=== PATIENT | male | born 1955 | race Two or more races ===

== ENCOUNTER → 2019-07-17 | Outpatient (CLI) | payer MEDICARE, MEDICAID ==
[~2019-07-17] MED LIST: ASPI-404 PO; ATOR10TA52 PO; HYDR25TA4 PO; OMEP20TA PO
[2019-07-17 07:48] LABS: Urine Bacteria FEW /hpf (None Seen); Urine Blood Negative /uL (Negative); Urine Mucus FEW (None Seen); Urine Specific Gravity 1.017 (1.001-1.035); Urine WBC 4 /hpf (0 - 3)
[2019-07-17 08:02] LABS: INR 1.03 (0.9-1.15); Partial Thromboplastin Time 29.1 sec (23.64-32.05)
[2019-07-17 08:10] LABS: Albumin 3.6 g/dL (3.4-5.0); Calcium 8.8 mg/dL (8.5-10.1); Potassium 3.4 mmol/L (3.5-5.1)
[2019-07-17 08:14] LABS: BUN/Creatinine Ratio 16.7; Bilirubin, Total 0.4 mg/dL (0.2-1.0); Total Protein 7.5 g/dL (6.4-8.2)
[2019-07-17 09:01] LABS: Free T4 (Free Thyroxine) 1.26 ng/dL (0.89-1.76)
[2019-07-18 04:06] LABS: RPR Non Reactive (Non Reactive)
== END | disposition home or self-care (01) ==
LOC: LAB 07:10
PROVIDERS: ATTEND Internal Medicine
DX: Z01.818 Encounter for other preprocedural examination (principal); I10 Essential (primary) hypertension; R73.03 Prediabetes; E55.9 Vitamin D deficiency, unspecified; I25.10 Atherosclerotic heart disease of native coronary artery without angina pectoris
CPT/HCPCS: 36415; 80053; 80061; 81001; 82306; 82607; 83036; 84439; 84443; 85610; 85730; 86592

== ENCOUNTER → 2023-09-14 | Outpatient (CLI) | payer MEDICARE, MEDICAID ==
[~2023-09-14] MED LIST changes: -ASPI-404 PO; +ASPI-543 PO
[2023-09-14 12:35] LABS: Urine Bacteria None Seen /hpf (None Seen)
[2023-09-14 12:42] LABS: Urine Blood Negative /uL (Negative); Urine Clarity Clear (Clear); Urine Color Colorless (Yellow); Urine Protein, UAD Negative (Negative); Urine Specific Gravity 1.006 (1.001-1.035); Urine Urobilinogen Normal (Negative); Urine WBC <1 /hpf (0 - 3)
== END | disposition home or self-care (01) ==
LOC: LAB 12:33
PROVIDERS: ATTEND Internal Medicine
DX: N39.0 Urinary tract infection, site not specified (principal)
CPT/HCPCS: 81001; 87086

== ENCOUNTER → 2023-09-15 | Outpatient (CLI) | payer MEDICARE, MEDICAID ==
[2023-09-15 11:46] LABS: Urine Bacteria None Seen /hpf (None Seen); Urine WBC None Seen /hpf (0 - 3)
[2023-09-15 12:01] LABS: Basophils # (auto) 0.1 10 ^3/uL (0-0.2); Hemoglobin 14.5 g/dL (13.5-17.5); Urine Blood Negative /uL (Negative); Urine Clarity Clear (Clear); Urine Color Light-Yellow (Yellow); Urine Protein, UAD Negative (Negative); Urine Urobilinogen Normal (Negative)
[2023-09-15 12:02] LABS: Eosinophils # (auto) 0.3 10 ^3/uL (0-0.8); Eosinophils % (auto) 4.4 % (0.0-7.0); Hematocrit 45.1 % (41.0-53.0); Lymphocytes # (auto) 3.1 10 ^3/uL (0.4-5.4); Mean Corpuscular Hemoglobin 26.9 pg (28.0-32.0); Mean Corpuscular Hgb Conc. 32.1 g/dL (32.0-36.0); Mean Corpuscular Volume 83.6 fL (80.0-100.0); Monocytes # (auto) 0.7 10 ^3/uL (0-1.3); Monocytes % (auto) 8.6 % (0.0-12.0); Neutrophils # (auto) 3.4 10 ^3/uL (1.6-8.6); Nucleated Red Blood Cells % 0.2 %; Red Blood Cells 5.39 10^6/uL (4.5-5.90); Red Cell Distribution Width 14.8 % (11.8-14.3); White Blood Cell 7.7 10^3/uL (4.4-10.8)
[2023-09-15 13:04] LABS: Alanine Aminotransferase 29 U/L (7-40); Alkaline Phosphatase 69 U/L (46-116); Anion Gap 5 (5-15); BUN/Creatinine Ratio 16.9 (10.0-20.0); Blood Urea Nitrogen 13 mg/dL (9-23); Calcium 9.3 mg/dL (8.5-10.1); Carbon Dioxide 27 mmol/L (20-30); Chloride 108 mmol/L (98-107); Glucose 93 mg/dL (74-106); LDL Cholesterol 94 mg/dL (< 100); Potassium 4.1 mmol/L (3.5-5.1); Sodium 140 mmol/L (136-145); Triglycerides 71 mg/dL (< 150)
[2023-09-15 13:05] LABS: Albumin 4.2 g/dL (3.2-4.8); Aspartate Aminotransferase 16 U/L (13-40); Bilirubin, Total 0.9 mg/dL (0.2-1.0); Cholesterol 157 mg/dL (< 200); HDL Cholesterol 48 mg/dL (40-59)
[2023-09-15 13:30] LABS: Erythrocyte Sedimentation Rate 2 mm/hr (0-20)
== END | disposition home or self-care (01) ==
LOC: LAB 11:30
PROVIDERS: ATTEND Internal Medicine
DX: Z12.5 Encounter for screening for malignant neoplasm of prostate (principal); I10 Essential (primary) hypertension; N40.0 Benign prostatic hyperplasia without lower urinary tract symptoms; Z79.899 Other long term (current) drug therapy
CPT/HCPCS: 36415; 80053; 80061; 81001; 82274; 82306; 83036; 84153; 84443; 85025; 85652

== ENCOUNTER 2023-11-22 06:42 | Day surgery (SDC) | payer MEDICARE, MEDICAID ==
[2023-11-18 10:32] LABS: Basophils # (auto) 0.1 10 ^3/uL (0-0.2); Hemoglobin 14.7 g/dL (13.5-17.5); Neutrophils # (auto) 3.6 10 ^3/uL (1.6-8.6); Nucleated Red Blood Cells % 0.1 %; White Blood Cell 8.8 10^3/uL (4.4-10.8)
[2023-11-18 10:35] LABS: Eosinophils # (auto) 0.3 10 ^3/uL (0-0.8); Eosinophils % (auto) 3.8 % (0.0-7.0); Hematocrit 44.3 % (41.0-53.0); Lymphocytes # (auto) 3.9 10 ^3/uL (0.4-5.4); Lymphocytes % (auto) 43.7 % (10.0-50.0); Mean Corpuscular Hemoglobin 27.2 pg (28.0-32.0); Mean Corpuscular Hgb Conc. 33.1 g/dL (32.0-36.0); Mean Corpuscular Volume 82.2 fL (80.0-100.0); Monocytes % (auto) 10.9 % (0.0-12.0); Neutrophils % (auto) 40.6 % (37.0-80.0); Platelet Count (auto) 196 10^3/uL (140-450); Red Blood Cells 5.39 10^6/uL (4.5-5.90); Red Cell Distribution Width 14.5 % (11.8-14.3)
[2023-11-18 10:47] LABS: INR 1.06 (0.9-1.15); Partial Thromboplastin Time 29.2 SEC (24.5-34.5); Prothrombin Time 11.2 sec (9.3-11.8)
[2023-11-18 11:01] LABS: Alkaline Phosphatase 76 U/L (46-116); Anion Gap 4 (5-15); Aspartate Aminotransferase 20 U/L (13-40); BUN/Creatinine Ratio 20.5 (10.0-20.0); Blood Urea Nitrogen 17 mg/dL (9-23); Calcium 9.4 mg/dL (8.7-10.4); Carbon Dioxide 28 mmol/L (20-30); Chloride 108 mmol/L (98-107); Glucose 97 mg/dL (74-106); Potassium 3.9 mmol/L (3.5-5.1); Sodium 140 mmol/L (136-145)
[2023-11-18 11:02] LABS: Albumin 4.1 g/dL (3.2-4.8)
[2023-11-18 11:03] LABS: Total Protein 6.8 g/dL (5.7-8.2)
[2023-11-18 11:07] LABS: Bilirubin, Total 0.7 mg/dL (0.2-1.0)
[2023-11-18 11:52] LABS: Alanine Aminotransferase 31 U/L (7-40)
[~2023-11-22] VITALS: Ht 167.6 cm; Wt 88.5 kg
[~2023-11-22 06:42] MED LIST changes: +AMLO1TAB22 PO; +BACI1OIN EX; +ERGO400T PO; +FLUT1SPR21; -HYDR25TA4 PO; -OMEP20TA PO; +TAMS0.4C39 PO; +VALS40TA2 PO
[2023-11-22] MEDS ORDERED: ANGIOMAX 250 MG VIAL IV ONE (08:57)
[2023-11-22] MEDS ORDERED: fentaNYL CITRATE 100 MCG/2 ML VL ONE (08:58)
[2023-11-22] MEDS ORDERED: HEPARIN SODIUM (PORCINE) 5000 UNITS/ML 1ML VIAL ONE (08:58)
[2023-11-22] MEDS ORDERED: SODIUM CHL 0.9% 0 ML ONE (08:58)
[2023-11-22] MEDS ORDERED: MIDAZOLAM HCL 2MG/2ML 2ml VIAL (1mg/ml) ONE (08:58)
[2023-11-22] MEDS ORDERED: VERAPAMIL 2.5MG/ML INJ 2ML VIAL IV ONE (08:58)
[2023-11-22] MEDS ORDERED: LIDOCAINE 2%HCL (LOCAL ANESTH.) INJ 20ML MDV ONE (08:58)
[2023-11-22] MEDS ORDERED: IODIXANOL 320MG/ML 100ML BTL IV ONE (09:00)
== END 2023-11-22 11:43 | disposition home or self-care (01) ==
LOC: CATH 06:42
PROVIDERS: ATTEND Student in an Organized Health Care Education/Training Program
DX: R07.89 Other chest pain (principal); I25.10 Atherosclerotic heart disease of native coronary artery without angina pectoris; F32.A Depression, unspecified; Z79.82 Long term (current) use of aspirin; Z79.899 Other long term (current) drug therapy
CPT/HCPCS: 36415; 80053; 85025; 85610; 85730; 93458; C1894; J1644; J2250; J3010; J7030; Q9967; 99152

== ENCOUNTER 2024-10-29 06:44 | Outpatient (CLI) | payer MEDICARE, MEDICAID ==
[2024-10-29 08:03] LABS: Urine Protein, UAD Negative (Negative)
[2024-10-29 08:15] LABS: Alanine Aminotransferase 20 U/L (7-40); Alkaline Phosphatase 71 U/L (46-116); Anion Gap 8 (5-15); BUN/Creatinine Ratio 25.3 (10.0-20.0); Blood Urea Nitrogen 22 mg/dL (9-23); Calcium 9.8 mg/dL (8.7-10.4); Carbon Dioxide 29 mmol/L (20-31); Chloride 103 mmol/L (98-107); Glucose 96 mg/dL (74-106); Sodium 140 mmol/L (136-145); Total Protein 7.0 g/dL (5.7-8.2); Triglycerides 94 mg/dL (< 150)
[2024-10-29 08:16] LABS: Albumin 4.4 g/dL (3.2-4.8); Bilirubin, Total 0.8 mg/dL (0.2-1.0); Cholesterol 115 mg/dL (< 200); HDL Cholesterol 40 mg/dL (40-59)
[2024-10-29 08:17] LABS: INR 1.04 (0.9-1.15); Partial Thromboplastin Time 31.0 SEC (24.5-34.5); Prothrombin Time 11.0 sec (9.3-11.8)
[2024-10-29 08:19] LABS: Potassium 3.5 mmol/L (3.5-5.1)
[2024-10-29 10:29] LABS: Prostate Specific Antigen 0.88 ng/mL (0.0-4.0)
[2024-10-29 10:33] LABS: Free T4 (Free Thyroxine) 1.19 ng/dL (0.89-1.76)
[2024-10-29 10:56] LABS: Hepatitis A Total Antibody Positive (Negative); Hepatitis B Surface Antigen Negative (Negative); Hepatitis C Antibody Negative (Negative)
== END 2024-10-29 17:00 | disposition home or self-care (01) ==
LOC: LAB 06:44
PROVIDERS: ATTEND Internal Medicine
DX: Z01.812 Encounter for preprocedural laboratory examination (principal); Z51.81 Encounter for therapeutic drug level monitoring; N40.1 Benign prostatic hyperplasia with lower urinary tract symptoms; I10 Essential (primary) hypertension; E03.9 Hypothyroidism, unspecified; Z79.899 Other long term (current) drug therapy
CPT/HCPCS: 36415; 80053; 80061; 81001; 82274; 82306; 83036; 84153; 84439; 84443; 85610; 85730; 86704; 86706; 86708; 86803; 87340

== ENCOUNTER 2024-10-31 10:36 | Outpatient (CLI) | payer MEDICARE, MEDICAID ==
--- NOTE | 2024-10-31 12:02 | DVH ---
US US GUIDANCE FOR NEEDLE PLACEME HISTORY: LEFT THYROID NODULE PROCEDURE: An informed consent was obtained. Limited localization ultrasound of the thyroid gland was obtained. The left neck base was prepped with chlorhexidine which was allowed to dry and draped in t he usual sterile fashion. Timeout was performed. The skin and soft tissues were infiltrated with 1% X ylocaine. With ultrasound guidance, multiple fine needle aspirate biopsies of the nodule were obtain ed using a 25 gauge Secure-cut needle. The neck was cleaned and a sterile band-aid applied. The speci mens were sent to pathology for analysis. No immediate complication was identified. FINDINGS: Echogenic left mid / lower solid thyroid nodule. Limited ultrasound of the thyroid duri ng the biopsy demonstrates biopsy needle within nodule. IMPRESSION: Ultrasound guided fine needle aspiration of left thyroid nodule.
== END 2024-10-31 17:00 | disposition home or self-care (01) ==
LOC: US 10:36
PROVIDERS: ATTEND Internal Medicine
DX: E04.1 Nontoxic single thyroid nodule (principal); F32.A Depression, unspecified; Z79.82 Long term (current) use of aspirin; Z79.899 Other long term (current) drug therapy; Z87.891 Personal history of nicotine dependence
CPT/HCPCS: 10005; 76536; 76942

== ENCOUNTER 2024-11-07 05:39 | Outpatient (CLI) | payer MEDICARE, MEDICAID ==
[2024-11-07 10:52] LABS: Urine Protein, UAD Negative (Negative)
== END 2024-11-07 17:00 | disposition home or self-care (01) ==
LOC: LAB 05:39
PROVIDERS: ATTEND Urology
DX: N40.0 Benign prostatic hyperplasia without lower urinary tract symptoms (principal)
CPT/HCPCS: 81001; 87086

== ENCOUNTER → 2024-11-08 | Outpatient (CLI) | payer MEDICARE, MEDICAID | END | disposition home or self-care (01) | LOC: LAB 12:05 | PROVIDERS: ATTEND Urology | DX: N40.0 Benign prostatic hyperplasia without lower urinary tract symptoms (principal) | CPT/HCPCS: 84153 ==

== ENCOUNTER 2025-03-13 09:23 | Outpatient (CLI) | payer MEDICARE, MEDICAID | END 2025-03-13 17:00 | disposition home or self-care (01) | LOC: XYW 09:23 | PROVIDERS: ATTEND Internal Medicine | DX: I25.9 Chronic ischemic heart disease, unspecified (principal) | CPT/HCPCS: 93306 ==

== ENCOUNTER → 2025-04-03 | Outpatient (CLI) | payer MEDICARE, MEDICAID ==
[2025-04-03 08:10] LABS: Hematocrit 46.1 % (41.0-53.0); Hemoglobin 15.4 g/dL (13.5-17.5); Mean Corpuscular Hemoglobin 27.2 pg (28.0-32.0); Mean Corpuscular Volume 81.7 fL (80.0-100.0); Nucleated Red Blood Cells % 0.0 %
[2025-04-03 08:38] LABS: Urine Protein, UAD Negative (Negative)
[2025-04-03 08:57] LABS: Alanine Aminotransferase 28 U/L (7-40); Albumin 4.5 g/dL (3.2-4.8); Alkaline Phosphatase 67 U/L (46-116); Anion Gap 8 (5-15); BUN/Creatinine Ratio 13.3 (10.0-20.0); Blood Urea Nitrogen 12 mg/dL (9-23); Calcium 9.3 mg/dL (8.7-10.4); Carbon Dioxide 30 mmol/L (20-31); Chloride 104 mmol/L (98-107); Cholesterol 126 mg/dL (< 200); Potassium 4.2 mmol/L (3.5-5.1); Sodium 142 mmol/L (136-145); Total Protein 7.4 g/dL (5.7-8.2); Triglycerides 86 mg/dL (< 150)
[2025-04-03 08:58] LABS: Bilirubin, Total 0.6 mg/dL (0.2-1.0); HDL Cholesterol 43 mg/dL (40-59)
[2025-04-03 09:04] LABS: Glucose 111 mg/dL (74-106)
== END | disposition home or self-care (01) ==
LOC: LAB 07:47
PROVIDERS: ATTEND Internal Medicine
DX: I10 Essential (primary) hypertension (principal); R73.9 Hyperglycemia, unspecified; Z79.899 Other long term (current) drug therapy
CPT/HCPCS: 36415; 80053; 80061; 81001; 82306; 83036; 84443; 85025